=== PATIENT | male | born 1955 | race American Indian/Alaskan Native ===

== ENCOUNTER 2021-12-28 18:01 | Emergency (ER) | payer OTHER ==
[2021-12-28] MEDS ORDERED: ACETAMINOPHEN 325 MG TAB PO ONE (18:15)
[2021-12-28 18:47] LABS: Hematocrit 50.3 % (35.5-45.6); Mean Corpuscular HGB Conc 32 % (32-34); Mean Corpuscular Volume 84 fl (84-94); Platelet Count 155 K/mm3 (140-440); Red Blood Count 5.99 M/mm3 (3.65-5.03); Red Cell Distribution Width 14.8 % (13.2-15.2)
--- NOTE | 2021-12-28 19:03 | XRay Report ---
XR chest routine 2V INDICATION / CLINICAL INFORMATION: SOB. COMPARISON: None available. FINDINGS: SUPPORT DEVICES: None. HEART /PULMONARY VASCULATURE: No significant abnormality. LUNGS / PLEURA: No significant pulmonary or pleural abnormality. No pneumothorax. ADDITIONAL FINDINGS: No significant additional findings. IMPRESSION: 1. No acute findings. Signer Name: Luis Coronel MD Signed: 12/28/2021 6:59 PM Workstation Name: [id number]
[2021-12-28 19:06] LABS: Alanine Aminotransferase 29 units/L (7-56); Albumin 4.5 g/dL (3.9-5); BUN/Creatinine Ratio 7; Blood Urea Nitrogen 9 mg/dL (9-20); Calcium 9.7 mg/dL (8.4-10.2); Hemolysis Index 2
[2021-12-29 05:23] VITALS: BP 146/80
[2021-12-29] MEDS ORDERED: methylPREDNISolone Sod Succinate 125 MG/2 ML INJ IV ONE (06:47)
[2021-12-29] MEDS ORDERED: guaiFENesin 100 MG/5 ML ORAL LIQD PO ONE (06:48)
[2021-12-29] MEDS ORDERED: predniSONE 20 MG TAB PO ONE (06:53)
--- NOTE | 2021-12-29 06:56 | Emergency Department Report ---
HPI - General Chief Complaint: Dyspnea/Respdistress - HPI HPI: 66-year-old morbidly obese male who denies any known past medical history presents for evaluation of 3 days of body aches fevers and cough. Patient states he performed at home COVID test 3 days ago and states it was positive for COVID-19. He denies any sick contacts or travel history. He reports a persistent dry cough and he states the cough is not improved with Robitussin. No chest pain or shortness of breath no difficulty breathing no palpitations. No pain or swelling in his calves. No nausea vomiting headaches diarrhea or any other symptoms except those aforementioned above. Patient states "I am here because I want something for my cough." Pain 0 out of 10. ED Past Medical Hx - Past Medical History Hx Hypertension: No Hx CVA: No Hx Heart Attack/AMI: No Hx Congestive Heart Failure: No Hx Diabetes: No Hx Deep Vein Thrombosis: No Hx Pulmonary Embolism: No Hx GERD: No Hx Liver Disease: No Hx Renal Disease: No Hx of Cancer: No Hx Sickle Cell Disease: No Hx Arthritis: No Hx Headaches / Migraines: No Hx Seizures: No Hx Kidney Stones: No Hx Psychiatric Treatment: No Hx Asthma: No Hx Tuberculosis: No Hx Dementia: No Hx HIV: No Additional medical history: covid 19 - Surgical History Additional Surgical History: KNEE SX - Social History Smoking Status: Never Smoker - Medications Home Medications: Home Medications Medication Instructions Recorded Confirmed Last Taken Type Aspirin [Baby Aspirin] 81 mg PO QDAY 10/10/13 10/10/13 10/08/13 12:00 History HYDROcodone/APAP 5-325 [[place] 1 each PO Q6HR PRN #20 tablet 10/10/13 Unknown Rx 5/325 mg] Omeprazole [Prilosec] 20 mg PO QDAY #30 capsule. 10/10/13 Unknown Rx Ondansetron [Zofran Odt] 4 mg PO Q6HR PRN #20 tab.amy 10/10/13 Unknown Rx Valacyclovir HCl [Valacyclovir] 500 mg PO DAILY 10/10/13 10/10/13 10/08/13 12:00 History atenoloL [Tenormin] 25 mg PO DAILY 10/10/13 10/10/13 10/08/13 12:00 History methylPREDNISolone [Medrol 4MG 4 mg PO DAILY 6 Days #21 mg 12/29/21 Unknown Rx DOSEPAK (21 tabs)] ED Review of Systems ROS: Stated complaint: COVID-19/HIGH FEVER Other details as noted in HPI Comment: All other systems reviewed and negative Constitutional: see HPI, chills, fever. denies: diaphoresis, malaise, weakness, other Eyes: denies: eye pain, eye discharge, vision change ENT: denies: ear pain, throat pain, dental pain, hearing loss, epistaxis, congestion Respiratory: cough. denies: see HPI, orthopnea, shortness of breath, SOB with exertion, SOB at rest, stridor, wheezing Cardiovascular: denies: chest pain, palpitations, dyspnea on exertion, orthopnea, edema, syncope, paroxysmal nocturnal dyspnea Endocrine: denies: excessive sweating, flushing, intolerance to cold, intolerance to heat, increased hunger, increased thirst, increased urine, unexplained weight gain, unexplained weight loss Gastrointestinal: denies: abdominal pain, nausea, vomiting, diarrhea, constipation, hematemesis, melena, hematochezia Genitourinary: denies: urgency, dysuria, frequency, hematuria, discharge, testicular pain, testicular mass, other Musculoskeletal: denies: back pain, joint swelling, arthralgia, myalgia Skin: denies: rash, lesions, change in hair/nails, pruritus Neurological: denies: headache, weakness, numbness, paresthesias, confusion, abn ormal gait, vertigo Psychiatric: denies: anxiety, depression, auditory hallucinations, visual hallucinations, homicidal thoughts, suicidal thoughts Hematological/Lymphatic: denies: easy bleeding, easy bruising, swollen glands Physical Exam - Physical Exam Vital Signs: Vital Signs 12/28/21 12/29/21 12/29/21 18:06 05:22 05:28 Temperature 102.1 F H 100.8 F H Pulse Rate 115 H 86 Respiratory 24 16 Rate Blood Pressure 127/85 Blood Pressure 146/80 [Left] O2 Sat by Pulse 93 95 95 Oximetry General: Gen: Morbidly obese male, asleep in examination room with mask off, actively snoring, easily arousable, pleasant, pt is well appearing, no acute distress HEENT: Normocephalic atraumatic pupils equally round and reactive to light extraocular muscles intact sclera anicteric Neck: Full range of motion, no midline spinal tenderness palpation, no JVD, no carotid bruits, no nuchal rigidity CVS: S1-S2 regular rate and rhythm with no gallops rubs or murmurs, chest wall nontender Pulmonary: Clear to auscultation bilaterally, no wheezes rales or rhonchi Abdomen: Soft nondistended nontender no guarding or rebound tenderness, no palpable deformities or step-offs, normal active bowel sounds, no hepatosplenomegaly, no pulsatile masses : Deferred Extremities: No cyanosis no clubbing no edema, intact distal peripheral pulses, Integumentary: Skin normal, no petechia no purpura no abscess no lacerations no evidence of trauma no evidence of infection Neuro: Patient is awake alert and oriented to person place time situation, mentating well, cranial nerves II through XII intact, no focal neurodeficits, sensation grossly tact Psych: Calm cooperative, mood affect normal ED Course Vital Signs 12/28/21 12/29/21 12/29/21 18:06 05:22 05:28 Temperature 102.1 F H 100.8 F H Pulse Rate 115 H 86 Respiratory 24 16 Rate Blood Pressure 127/85 Blood Pressure 146/80 [Left] O2 Sat by Pulse 93 95 95 Oximetry - Reevaluation(s) Reevaluation #1: pt is awake, alert and oriented to person place time situation, is mentating well, no drooling no stridor no respiratory distress, nontoxic-appearing 12/29/21 06:56 Reevaluation #2: 12/29/21 07:56 Pt is well appearing; denies any complaints, vss; afebrile; pt denies; patient observed ambulating from the restroom and denies any symptoms, ED Medical Decision Making - Lab Data Result diagrams: 12/28/21 18:25 12/28/21 18:25 - EKG Data -: EKG Interpreted by Me EKG shows normal: sinus rhythm Rate: tachycardia - EKG Data When compared to previous EKG there are: no significant change, previous EKG unavailable Interpretation: no acute changes, normal EKG - Medical Decision Making 66yo morbidly obese male presents for evaluation of fever cough and body aches in the setting of having tested positive for COVID 4 days ago. Patient febrile but was given acetaminophen prior to my arrival. Patient's fever subsequently resolved. He denies any other symptoms and actually extremely well-appearing. Serum labs are grossly unremarkable. Chest x-ray per reading radiologist demonstrates no acute pathology. Per my clinical assessment no further emergent work-up warranted at this time as the patient's exam is nonfocal and his fever has resolved and the remainder of his vitals are stable. Patient instructed to self quarantine per CDC guidelines. All questions answered by me at the susie alexus's bedside. Patient stable for discharge home. Critical care attestation.: If time is entered above; I have spent that time in minutes in the direct care of this critically ill patient, excluding procedure time. ED Disposition Clinical Impression: COVID-19, Cough in adult patient Disposition: HOME / SELF CARE / HOMELESS Is pt being admited?: No Condition: Stable Instructions: COVID-19 Frequently Asked Questions, Cough, Adult, [id number] Additional Instructions: It is advised that you self quarantine as recommended by the CDC. Please go to www.cdc.gov to obtain more information concerning the CDC's recommended self- quarantine protocol. This is very important. Stay at home to manage your symptoms. Please do not leave your home unless there is an emergency. You are considered highly contagious at this time and it is advised that you remain at home to help decrease the likelihood of transmission of COVID19, to others. Be sure to drink plenty of fluids. Take ibuprofen as needed for letty. You may alternate ibuprofen 600mg (every 6 hours_and/or acetaminophen (975mg by mouth every 4-6 6 hours itself) for management of fever and/or body aches. Continue to take over the counter Robitussin. Starting tomorrow, 12/30/21, begin taking the medrol dose pack until it has been fully completed. Return to the nearest emergency department of you develop severe or worsening chest pain, shortness of breath, any fever of 100.4F or higher that is not responding to ibuprofen AND acetaminophen, severe headaches, vomiting, inability to tolerate liquids or solids, or if any other new worrisome symptoms develop Prescriptions: methylPREDNISolone [Medrol 4MG DOSEPAK (21 tabs)] 4 mg PO DAILY 6 Days #21 mg Referrals: PRIMARY CARE, [Primary Care Provider] - 3-5 Days
--- NOTE | 2021-12-29 10:43 | Electrocardiograph Report ---
[facility] Test Date: 2021-12-28 Test Time: 18:19:55 Pat Name: YVONNE BRANTLEY JR Department: Room: Gender: M [employer]er: JOSHUA : 1955 Requested By: LONA BECERRIL Order Number: [id number] Reading MD: Sushil Anderson Measurements Intervals [place] Rate: 108 P: 93 VT: 162 QRS: -1 QRSD: 81 T: 42 QT: 316 QTc: 425 Interpretive Statements Sinus tachycardia Probable left atrial enlargement No previous ECG available for comparison Electronically Signed On 12-29-2021 10:42:50 EDT by Sushil Anderson
== END 2021-12-29 07:45 | disposition home or self-care (01) ==
LOC: ED 18:01
DX: R05.9 Cough, unspecified (principal); Z20.822 Contact with and (suspected) exposure to COVID-19
CPT/HCPCS: 36415; 71046; 80053; 80320; 82140; 85027; 93005; 99284; G0480